=== PATIENT | male | born 1975 | race Caucasian/White ===

== ENCOUNTER 2020-12-11 14:50 | Outpatient (REF) | payer OTHER, SELFPAY | END 2020-12-11 14:51 | disposition home or self-care (01) | LOC: HO.LAB 14:50 | PROVIDERS: PCP Internal Medicine; Visit Provider Internal Medicine | DX: Z20.822 Contact with and (suspected) exposure to COVID-19 (principal) | CPT/HCPCS: C9803; U0003; U0005 ==

== ENCOUNTER 2020-12-12 09:16 | Emergency (ER) | payer OTHER, SELFPAY ==
--- NOTE | ~2020-12-12 | US_ITS ---
EXAMINATION: US VENOUS ULTRASOUND WITH DOPPLER LOWER EXTREMITY, LEFT CLINICAL INFORMATION: Calf pain rule out DVT. COMPARISON: None TECHNIQUE: Ultrasound of the deep veins is performed from the hip to the calf with compression sonography and color and pulse Doppler assessment. Spectral analysis with color-flow imaging is performed. FINDINGS: There is normal venous compression and respiratory variation and augmented flow. The visualized common femoral vein, superficial femoral vein, profunda femoral vein, popliteal vein, and the trifurcation region shows no evidence of deep venous thrombosis. There is no significant popliteal fossa cyst. If the patient's symptoms persist, followup ultrasound in 5 days 7 days might be of value to exclude proximal propagation from a non-visualized calf vein. US/US venous duplex LE IMPRESSION: No DVT demonstrated in the left lower extremity.
[2020-12-12 11:17] VITALS: BP 170/89; PULSE 81; RESP 16; TEMP 37; O2SAT 98; BMI 34.0
[2020-12-12 12:01] VITALS: BP 142/99; PULSE 84; RESP 18; TEMP 37; O2SAT 98
--- NOTE | 2020-12-12 16:39 | ED.EXTPRO ---
HPI - Extremity Problem General Chief complaint: Extremity Problem Stated complaint: leg pain Time Seen by Provider: 12/12/20 12:39 History of Present Illness HPI Narrative: Patient complains of left lower leg pain over the past several days, no fever no chills no chest pain no shortness of breath, no chest pain no pleuritic pain no redness no swelling no fever Related Data Allergies Allergy/AdvReac Type Severity Reaction Status Date / Time amoxicillin [From Augmentin] Allergy Rash Verified 12/12/20 14:03 clavulanic acid Allergy Rash Verified 12/12/20 14:03 [From Augmentin] Review of Systems Review of Systems: Positive for left lower leg pain without injury Negatives are no fever no chills no dizziness no weakness no fainting no feeling faint no headache no neck pain no chest pain no shortness of breath no pain with a deep breath, no abdominal pain no leg swelling no rash no numbness weakness or tingling no joint pains Yes all other systems are reviewed and are negative PMFSH Past Medical History Source: nursing notes reviewed Social History Social History Advance Directives: Yes Advance Directives Information Provided: Yes Advance Directives on File: No Physical Exam Vital Signs: Vital Signs: Last Vital Signs Temp 97.8 F 12/12/20 16:41 Pulse 84 12/12/20 16:41 Resp 18 12/12/20 16:41 BP 132/82 12/12/20 16:41 Pulse Ox 98 12/12/20 16:41 Body Mass Index 34.0 General appearance no acute distress Head is normocephalic atraumatic Neck is supple Chest clear to auscultation bilateral no pleuritic pain Heart no murmur Abdomen soft nontender Extremities full range of motion x4 The leftleg had some tenderness in the posterior lower leg and behind the knee, there was no swelling, no edema, there is full range of motion in knee and ankle and the gait was normal and neurovascular intact distal Other extremities normal Skin no rash Neuro no focal motor or sensory deficit Course Course Course Narrative: Ultrasound of the left leg was normal and patient has no evidence of infection or joint swelling or of any injury The blood pressure was noted to be high and patient was educated on importance of determining whether not he has high blood pressure and following with primary doctor Discharge Plan Discharge Clinical Impression: Left leg pain Patient Disposition: Home, Self-Care Additional Instructions: Ultrasound of left leg was normal, no clot now If swelling and pain continue you may need a repeat ultrasound for confirmation in a week so follow with her doctor or return to the ER if symptoms continue There is no sign of infection or joint infection or bad circulation in the legs Return to the ER any time for any change or worse condition or any concerns You could use Tylenol as needed for pain Your blood pressure was elevated in the emergency room so follow with primary doctor If possible by a home blood pressure cuff and keep a record of the readings, many times in the ER people are anxious which can raise the blood pressure Interventions: ED Discharge Assessment Last Done: 12/12/20 17:01 Discharge Date/Time: 12/12/20 17:02
[2020-12-12 16:41] VITALS: BP 132/82; PULSE 84; RESP 18; TEMP 36.6; O2SAT 98
== END 2020-12-12 17:02 | disposition home or self-care (01) ==
PROVIDERS: Emergency Provider Emergency Medicine; PCP Internal Medicine
DX: M79.662 Pain in left lower leg (principal)
CPT/HCPCS: 93971; 99284